=== PATIENT | female | born 1955 | race Caucasian/White ===

== ENCOUNTER → 2016-07-28 | Outpatient (CLI) | payer OTHER | LOC: FIMAGING 08:29 | PROVIDERS: ATTEND Surgery | DX: Z12.31 Encounter for screening mammogram for malignant neoplasm of breast (principal); N60.91 Unspecified benign mammary dysplasia of right breast | CPT/HCPCS: G0202 ==

== ENCOUNTER → 2017-08-24 | Outpatient (CLI) | payer OTHER | LOC: FIMAGING 08:41 | PROVIDERS: ATTEND Surgery | DX: Z12.31 Encounter for screening mammogram for malignant neoplasm of breast (principal) ==

== ENCOUNTER → 2018-05-25 | Outpatient (CLI) | payer OTHER | LOC: FIMAGING 15:10 | PROVIDERS: ATTEND Orthopaedic Surgery | DX: M17.12 Unilateral primary osteoarthritis, left knee (principal); S83.012A Lateral subluxation of left patella, initial encounter ==

== ENCOUNTER 2018-06-27 06:08 | Observation (INO) | payer OTHER ==
--- NOTE | 2018-06-27 06:03 | PDHPUP ---
History & Physical Update H&P update statement: This history and physical update is based on an assessment of the patient which was completed after admission or registration (within 24 hours), but prior to the surgery/procedure. H&P update: H&P reviewed & patient examined, no change in patient's condition since H&P completed
[~2018-06-27 06:08] MED LIST: ROPIVACAINE 0.2% 80 MG, EPINEPHrine 0.2 MG, KETOROLAC TROMETHAMINE 30 MG in SYRINGE 0 ML IU ONE; TRANEXAMIC ACID 3,000 MG in NS (SYRINGE) 50 ML IRR ONE
[2018-06-27] MEDS ORDERED: DEXAMETHASONE 4 MG/ML VIAL IVP ONE (06:16)
[2018-06-27] MEDS ORDERED: ACETAMINOPHEN 325 MG TAB PO ONE (06:16)
[2018-06-27] MEDS ORDERED: ceFAZolin 2 GM/DEXTROSE 100 ML IV ONE (06:16)
[2018-06-27] MEDS ORDERED: FAMOTIDINE 20 MG TAB PO ONE (06:16)
[2018-06-27] MEDS ORDERED: LIDOCAINE 1% 2 ML INJ ID PRN (06:20)
[2018-06-27] MEDS ORDERED: LR 1,000 ML IV ONE (06:20)
[2018-06-27] MEDS ORDERED: fentaNYL 100 MCG/2 ML INJ ONE (06:39)
[2018-06-27] MEDS ORDERED: PROPOFOL 200 MG/20 ML VIAL ONE ×2 (06:39→07:33)
[2018-06-27] MEDS ORDERED: TRANEXAMIC ACID 3,000 MG/50 ML BAG IRR ONE (06:50)
--- NOTE | 2018-06-27 06:52 | PDANEPAE ---
ANE History of Present Illness Left TKA. ANE Past Medical History - Cardiovascular History Hx Hypertension: No Hx Arrhythmias: No Hx Chest Pain: No Hx Coronary Artery / Peripheral Vascular Disease: No Hx CHF / Valvular Disease: No Hx Palpitations: No - Pulmonary History Hx COPD: No Hx Asthma/Reactive Airway Disease: Yes Hx Recent Upper Respiratory Infection: No Hx Oxygen in Use at Home: No Hx Sleep Apnea: No Sleep Apnea Screening Result - Last Documented: Negative Pulmonary History Comment: asthma allergy induced. uses inhaler rarely - Neurologic History Hx Cerebrovascular Accident: No Hx Seizures: No Hx Dementia: No - Endocrine History Hx Diabetes: No Hypothyroid: Yes Hyperthyroid: No Obesity: no - Renal History Hx Renal Disorders: No - Liver History Hx Hepatic Disorders: No - Neurological & Psychiatric Hx Hx Neurological and Psychiatric Disorders: Yes Neurological / Psychiatric History Comment: right side upper extremities N/T - Cancer History Hx Cancer: Yes Cancer History Comment: pre-breast ca lumpectomy - Congenital Disorder History Hx Congenital Disorders: No - GI History GERD: no Hx Gastrointestinal Disorders: Yes Gastrointestinal History Comment: spastic colon - Other Health History Other Health History: numbness to right ear resolved. post menapausal - Chronic Pain History Chronic Pain: Yes (arthritis in hands) - Surgical History Prior Surgeries: none in last 5 yrs. stem cell and PRP. knee scope 13 yrs ago. lumpectomy ANE Review of Systems Review of Systems: - Exercise capacity METS (RN): 4 METS ANE Patient History - Allergies Allergies/Adverse Reactions: bee venom protein (honey bee) Allergy (Verified 06/27/18 06:25) Anaphylaxis strawberry Allergy (Verified 06/27/18 06:25) Anaphylaxis red wine Allergy (Uncoded 06/27/18 06:25) Swelling/neck,face,throat - Home Medications Home Medications: Levothyroxine [Synthroid 125 mcg (*)] 125 mcg PO DAILY06 08/29/13 [Last Taken 06:00] Herbals/Supplements -Info Only 1 ea PO DAILY 05/18/18 [Last Taken 06/13/18] Multivitamins [Multivitamin (*)] 1 each PO DAILY 05/18/18 [Last Taken 06/13/18] - Anes Hx Anes Hx: no prior problems - Smoking Hx Smoking Status: Never smoked - Alcohol Use Alcohol Use: Other (1 drink/day) - Family Anes Hx Family Anes Hx: none Family Hx Anesthesia Complications: none ANE Labs/Vital Signs - Vital Signs Blood Pressure: 128/84 Heart Rate: 76 O2 Sat (%): 94 Height: 161.29 cm Weight: 64.41 kg ANE Physical Exam - Airway Neck exam: FROM Mallampati Score: Class 1 Mouth exam: normal dental/mouth exam - Pulmonary Pulmonary: clear to auscultation - Cardiovascular Cardiovascular: regular rate and rhythym - ASA Status ASA Status: II ANE Anesthesia Plan Anesthesia Plan: spinal Regional Anesthesia: adductor canal FNB
[2018-06-27] MEDS ORDERED: MIDAZOLAM 2 MG/2 ML VIAL IVP ONE (06:53)
[2018-06-27] MEDS ORDERED: BUPIVACAINE 0.5% 30 ML SDV ONE (07:05)
[2018-06-27] MEDS ORDERED: ROPIVACAINE HCL 150 MG/30 ML INJ ONE (07:51)
[2018-06-27] MEDS ORDERED: clonIDINE 1 MG/10 ML VIAL EP ONE (07:51)
[2018-06-27] MEDS ORDERED: NALOXONE HCL 0.4 MG/ML INJ IVP PRN (08:12)
[2018-06-27] MEDS ORDERED: HYDROmorphONE/DILAUDID 1 MG/ML INJ IVP PRN (08:12)
[2018-06-27] MEDS ORDERED: ONDANSETRON 4 MG/2 ML VIAL IVP PRN ×2 (08:12→08:39)
[2018-06-27] MEDS ORDERED: ALBUTEROL 3 ML DEYVIAL IH PRN (08:12)
[2018-06-27] MEDS ORDERED: fentaNYL 100 MCG/2 ML INJ IVP PRN (08:12)
[2018-06-27] MEDS ORDERED: METOCLOPRAMIDE 10 MG/2 ML VIAL IVP PRN (08:39)
[2018-06-27] MEDS ORDERED: diphenhydrAMINE 25 MG CAP PO PRN (08:39)
[2018-06-27] MEDS ORDERED: PROMETHAZINE HCL 25 MG SUPPR PR PRN (08:39)
[2018-06-27] MEDS ORDERED: CYCLOBENZAPRINE 10 MG TAB PO PRN (08:39)
[2018-06-27] MEDS ORDERED: POLYETHYLENE GLYCOL 3350 17 GM PKT PO PRN (08:39)
[2018-06-27] MEDS ORDERED: PROMETHAZINE HCL 25 MG/ML INJ IVP PRN (08:39)
[2018-06-27] MEDS ORDERED: ONDANSETRON DISINTEGRATING 4 MG TAB PO PRN (08:39)
[2018-06-27] MEDS ORDERED: LACTULOSE 20 GM/30 ML UDCUP PO PRN (08:39)
[2018-06-27] MEDS ORDERED: MAGNESIUM HYDROXIDE 30 ML UDCUP PO PRN (08:39)
[2018-06-27] MEDS ORDERED: DIPHENOXYLATE/ATROPINE LOMOTIL 1 TAB PO PRN (08:39)
[2018-06-27] MEDS ORDERED: oxyCODONE IR 5 MG TAB PO PRN (08:39)
[2018-06-27] MEDS ORDERED: BISACODYL 10 MG SUPP PR PRN (08:39)
[2018-06-27] MEDS ORDERED: TEMAZEPAM 15 MG CAP PO PRN (08:39)
--- NOTE | 2018-06-27 08:39 | POSTOPPROG ---
Post Op Note Date of Operation: 06/27/18 Surgeon: Gm Montejo Labeler: Lilia Fiore PAC Anesthesiologist: Dr. Pelon Graff Anesthesia: Spinal, Other (Specify) (adductor canal block) Pre-op Diagnosis: left knee OA Post-op Diagnosis: same Indication: left knee pain Procedure: LTKA, robot assisted Findings: severe OA of left knee Inf/Abcess present in the surg proc area at time of surgery?: No EBL: 50-100
[2018-06-27] MEDS ORDERED: LR 1,000 ML IV SCH (09:00)
[2018-06-27] MEDS ORDERED: SENNOSIDES/DOCUSATE SODIUM TAB PO SCH (09:00)
--- NOTE | 2018-06-27 09:47 | POSTANESTH ---
Post Anesthetic Evaluation Cardiovascular Status: Normal, Stable Respiratory Status: Similar to Pre-op Cond. Level of Consciousness/Mental Status: Can Participate in Eval Pain Control: Adequate, Prn Tx Ordered Nausea/Vomiting Control: Adequate, Prn Tx Ordered Complications Possibly Related to Anesthesia: None Noted
--- NOTE | 2018-06-27 11:49 | SOAPPROG ---
SOAP Progress Note Assessment/Plan: Assessment: s/p left TKA, BELLA assist - procedure earlier this morning Still having numbness in her legs Plan: Begin d/c planning - patient is wanting to go home today, but she was not able to walk with PT secondary to numbness. Will see if another PT can evaluate her in a couple hours. If she is not cleared, then patient will stay today and leave tomorrow. She will have the support of her boyfriend at home. Continue PT efforts - WBAT, ROM but limit knee flexion to 90 degrees until POD 5 -7 Continue VTE ppx - aspirin 81 mg BID, SCDs, GREGORY kennedy Continue oral pain medication - oxycodone, tylenol, celebrex Subjective: Patient states she has no pain at this time secondary to the spinal anesthesia and nerve block. She is wanting to go home today, but during her PT session her knees buckled due to residual numbness from the block/spinal anesthesia. She would like to try therapy again in a couple hours if a PT is available to work with her. States her boyfriend will be at her home to help care for her. She has outpatient PT scheduled to start in 2 weeks. She denies SOB, CP, fever, chills. Objective: Vital Signs Temp Pulse Resp BP Pulse Ox 36.5 C 74 17 135/76 H 94 06/27/18 11:21 06/27/18 11:21 06/27/18 11:21 06/27/18 11:21 06/27/18 11:21 Patient sitting comfortably in her chair, no acute distress. LLE: Wound dressings are clean, dry and intact. Lower leg compartments are soft and nontender. Negative Homans sign. She can actively DF and PF her left foot and great toe against resistance. Grossly NVI distally. A nurse and myself assisted the patient to the bedside commode. During transfer on and off the commode her right knee buckled. ICD10 Worksheet Patient Problems: Problems Problem Status Onset Unilateral primary osteoarthritis, left knee Acute
[2018-06-27] MEDS ORDERED: ACETAMINOPHEN 325 MG TAB PO SCH (14:39)
[2018-06-27] MEDS ORDERED: ceFAZolin 2 GM/DEXTROSE 100 ML IV SCH (15:00)
--- NOTE | 2018-06-27 15:19 | PDDCSUM ---
Discharge Summary Discharge Summary: ADMISSION DIAGNOSIS: Left knee severe degenerative arthritis DISCHARGE DIAGNOSIS: Left knee severe degenerative arthritis OPERATION PERFORMED: June 27, 2018, Left total knee arthroplasty, Wesley robot assisted POSTOPERATIVE COMPLICATIONS: None CONDITION ON DISCHARGE: Improved HPI: The patient is a 62 year old female who has end-stage arthritis of her left knee. Clinical and radiographic features are consistent with this. Patient has failed attempts at conservative management, therefore, recommended operative left total knee replacement. DESCRIPTION OF HOSPITAL COURSE: The patient was admitted to the hospital on the morning of surgery and underwent a left total knee arthroplasty, Wesley robot assisted. Postoperatively, patient was treated with multimodal DVT prophylaxis, including aspirin 81 mg BID, SCDs, GREGORY hose. Patient was seen by PT and made good progress with ambulation and stairs. Patient was able to void spontaneously. At the time of discharge, patient was afebrile, wound was clean and dry. Patient is walking with a walker. DISPOSITION: The patient is discharged home and will have outpatient PT in 2 weeks. Patient may progress to full weightbearing on the left lower extremity as tolerated. GREGORY stockings for 2 weeks during the day time. Aspirin 81 mg BID for 4 weeks. Patient has prescriptions for Celebrex, oxycodone for pain control. She may also continue to take Tylenol as needed for pain. The patient will be seen by Dr. Ortiz office in approximately 3 weeks. If there are any problems, patient is to call Dr. Ortiz office.
[2018-06-27 15:26] VITALS: BP 137/85
[2018-06-27] MEDS ORDERED: FAMOTIDINE 20 MG TAB PO SCH (21:00)
[2018-06-27] MEDS ORDERED: ASPIRIN 81 MG CHEWABLE TAB PO SCH (21:00)
[2018-06-28] MEDS ORDERED: LEVOTHYROXINE 125 MCG TAB PO SCH (06:00)
--- NOTE | 2018-06-28 08:45 | GOP ---
[f rep st] OPERATIVE REPORT DATE OF OPERATION: 06/27/2018 SURGEON: Ashok Montejo MD ONLINE MEDIA BUYER: Kaylyn Fiore P.A.-c ANESTHESIA: Spinal. PREOPERATIVE DIAGNOSIS: Left knee osteoarthritis. POSTOPERATIVE DIAGNOSIS: Left knee osteoarthritis. PROCEDURE PERFORMED: Left total knee arthroplasty with computer navigation, robotic assist. FINDINGS: ESTIMATED BLOOD LOSS: 30 cc. INDICATIONS: The patient is a 62-year-old female with severe and progressive pain and deformity of the left knee unresponsive to conservative care. The risks and benefits of surgical intervention were explained in detail. DESCRIPTION OF PROCEDURE: The patient was brought to the operative room and placed on the table in the supine position. Spinal anesthesia was induced without difficulty. A pneumatic tourniquet was applied about the left proximal thigh, and the leg was prepped and draped in a sterile fashion. The leg vasquez was applied. After exsanguination by elevation the tourniquet was inflated to 250 mmHg. Incision was made anterior medial from the tibial tuberosity to a point 2 cm proximal to the superior pole of the patella. Medial parapatellar arthrotomy was carried out from the superior pole of the patella and posteriorly in line with the fibers of the Type II VMO. The medial collateral ligament was elevated and the infrapatellar fat pad was resected. Pathology: Severe medial and patellofemoral osteoarthritis. The patella was everted and the articular surface was excised. A 32 mm patellar button was placed. Attention was turned first to the distal aspect of the femur. After exposure of the femur, 2 half pins were placed for fixation of the femoral array. In a similar fashion, 2 pins were placed anteromedial on the tibia for fixation of the tibial array. External land marking and registration of the hip center was performed without difficulty. Internal femoral and tibial registration was carried out without difficulty and the femoral and tibial checkpoints were placed and verified for accuracy. Attention was turned to the femur. The foot print for the size 3 femoral component was cut with the saw using the [employer] robotic system and verified for accuracy against the CT based plan. In a similar fashion, the saw was used to cut the footprint for the size 3 tibial component using the [employer] system and verified for accuracy against the CT based plan. The tibial articular surface was excised without difficulty, followed by the intercondylar box cut. The knee was extended and the remnants of the medial and lateral meniscus were excised. The posterior capsule was injected with ropivacaine, epinephrine and Toradol. A size 3 tibial tray was positioned. Trial reduction was then carried out. There was excellent range of motion, alignment, and stability using the 3.9 mm polyethylene. All trials were then removed. The joint was thoroughly irrigated and carefully dried. The press-fit components were implanted. The permanent 3.9 mm polyethylene was placed without difficulty. The tourniquet was deflated and all bleeders were coagulated. The wound was thoroughly irrigated and closed using interrupted sutures of 2-0 Vicryl for the joint capsule. The subcu was closed with 3-0 Vicryl and the skin with 4-0 Monocryl. Dermabond and Steri-Strips were applied followed by a compressive dressing. The patient was then moved from the operating room to the recovery room in good condition, having tolerated the procedure well. /[id number]/MODL MTDD
== END 2018-06-27 16:35 | disposition home or self-care (01) ==
LOC: F3N 06:08
PROVIDERS: ADMIT Orthopaedic Surgery; ATTEND Orthopaedic Surgery
PROC: 8E0YXBG Computer Assisted Procedure of Lower Extremity, With Computerized Tomography (ICD-10-PCS; principal; 2018-06-27 07:15)
PROC: 0SRD06Z Replacement of Left Knee Joint with Oxidized Zirconium on Polyethylene Synthetic Substitute, Open Approach (ICD-10-PCS; principal; 2018-06-27 07:15)
PROC: 8E0Y0CZ Robotic Assisted Procedure of Lower Extremity, Open Approach (ICD-10-PCS; principal; 2018-06-27 07:15)
DX: M17.12 Unilateral primary osteoarthritis, left knee (principal)
CPT/HCPCS: 27447; 73560; 97110; 97116; 97161; 97530; G0378; J0171; J0690; J0735; J1100; J1885; J2250; J2704; J2795; J3010